=== PATIENT | female | born 1960 | race African-American/Black ===

== ENCOUNTER → 2017-03-05 | Emergency (ER) | payer MEDICAID | END | disposition left against medical advice (07) | LOC: ER 22:26 | DX: T21.02XA Burn of unspecified degree of abdominal wall, initial encounter (principal); Z53.21 Procedure and treatment not carried out due to patient leaving prior to being seen by health care provider; X58.XXXA Exposure to other specified factors, initial encounter; Y93.89 Activity, other specified; Y99.8 Other external cause status; Y92.89 Other specified places as the place of occurrence of the external cause ==

== ENCOUNTER 2019-12-08 00:15 | Emergency (ER) | payer MEDICAID ==
[~2019-12-08] VITALS: Ht 167.6 cm; Wt 86.2 kg
[2019-12-08 00:28] VITALS: BP 112/58
[2019-12-08] MEDS ORDERED: IPRATROPIUM BROM 0.5 MG/2.5ML INH SOL NEB ONE (02:00)
[2019-12-08] MEDS ORDERED: ALBUTEROL SULF 2.5 MG/0.5ML(0.5%) NEB SOLN NEB ONE (02:00)
== END 2019-12-08 03:04 | disposition home or self-care (01) ==
LOC: ER 00:16
DX: J45.909 Unspecified asthma, uncomplicated (principal); J20.9 Acute bronchitis, unspecified; H10.33 Unspecified acute conjunctivitis, bilateral; J01.00 Acute maxillary sinusitis, unspecified; I10 Essential (primary) hypertension; I25.2 Old myocardial infarction; F17.210 Nicotine dependence, cigarettes, uncomplicated; Z90.710 Acquired absence of both cervix and uterus
CPT/HCPCS: 71046; 94640; 99283; J7644

== ENCOUNTER 2021-05-04 08:34 | Inpatient (IN) | payer MEDICAID ==
[~2021-05-04] VITALS: Ht 167.6 cm; Wt 98.7 kg
[~2021-05-04 08:34] MED LIST: HYDR-4072 PO; LOSA25TA38 PO; RISP0.2535 PO; TRIA37.56 PO
[2021-05-04] MEDS ORDERED: MIDAZOLAM HCL 2MG/2ML 2ml VIAL (1mg/ml) ONE (09:07)
[2021-05-04] MEDS ORDERED: ROCURONIUM 10MG/ML 10ML VIAL IV ONE ×2 (09:07→12:50)
[2021-05-04] MEDS ORDERED: fentaNYL CITRATE 100 MCG/2 ML VL ONE (09:07)
[2021-05-04] MEDS ORDERED: SODIUM CHLORIDE LOCK 10 ML ONE (09:07)
[2021-05-04] MEDS ORDERED: GLYCOPYRROLATE 0.2 MG/ML 1ML VIAL ONE (09:07)
[2021-05-04] MEDS ORDERED: HYDROmorphone HCL 2 MG/ML VL ONE (09:07)
[2021-05-04] MEDS ORDERED: ONDANSETRON HCL 4 MG/2 ML VIAL ONE (09:07)
[2021-05-04] MEDS ORDERED: NEOSTIGMINE 1 MG/ML INJ (10mg/10ML VIAL) ONE (09:07)
[2021-05-04] MEDS ORDERED: PROPOFOL 10 MG/ML 20 ML IV ONE (09:07)
[2021-05-04] MEDS: LIDOCAINE W/ EPINEPHRINE 1% 20ML VIAL ONE ×2 (09:41→14:43)
[2021-05-04] MEDS: BUPIVACAINE 0.25% INJ 50ML VIAL ONE ×2 (09:42→14:43)
[2021-05-04] MEDS ORDERED: METHYLENE BLUE 0.5% 5MG/ML 10ml AMP IV ONE (09:42)
[2021-05-04] MEDS ORDERED: CIPROFLOXACIN 400MG/200ML 200 ML IV ONE (10:56)
[2021-05-04] MEDS ORDERED: ALPRAZolam 0.5 MG TAB PO PRN (11:30)
[2021-05-04] MEDS ORDERED: ACETAMINOPHEN 500 MG TAB PO PRN (11:30)
[2021-05-04] MEDS ORDERED: NITROGLYCERIN 0.4 MG SL TAB SL PRN (11:30)
[2021-05-04] MEDS ORDERED: HYDROcodone-ACET 10/325MG TAB PO PRN (11:30)
[2021-05-04] MEDS ORDERED: ONDANSETRON HCL 4 MG/2 ML VIAL IV PRN (11:30)
[2021-05-04] MEDS ORDERED: MORPHINE SULFATE INJECTION 2 MG/ML SYRG IV PRN (11:30)
[2021-05-04] MEDS ORDERED: SUCCINYLCHOLINE CHLORIDE 20 MG/ML 10ML VIAL IV ONE (13:40)
[2021-05-04] MEDS ORDERED: SUGAMMADEX 200mg/2ml Vial (100MG/ML) IV ONE (14:44)
[2021-05-04] MEDS: SODIUM CHLORIDE 0.9% 1,000 ML IV SCH (15:00)
[2021-05-04 17:00] VITALS: BP 134/73
[2021-05-04] MEDS: MORPHINE SULFATE 4 MG/ML SYR/VIAL IV PRN ×2 (17:33→21:17)
[2021-05-05] MEDS: SODIUM CHLORIDE 0.9% 1,000 ML IV SCH ×2 (02:36→03:30)
[2021-05-05 05:00] VITALS: BP 159/87
[2021-05-05 09:00] VITALS: BP 119/72
== END 2021-05-05 11:10 | disposition home or self-care (01) | DRG 514 ==
LOC: SUR 08:34 → OVERFLOW 11:21 → WEST WING 17:05
PROVIDERS: ADMIT Obstetrics & Gynecology; ATTEND Obstetrics & Gynecology
PROC: 0USG4ZZ Reposition Vagina, Percutaneous Endoscopic Approach (ICD-10-PCS; 2021-05-04)
PROC: 0DU Gastrointestinal System, Supplement (ICD-10-PCS; 2021-05-04)
PROC: 8E0W4CZ Robotic Assisted Procedure of Trunk Region, Percutaneous Endoscopic Approach (ICD-10-PCS; 2021-05-04)
PROC: 0DNW4ZZ Release Peritoneum, Percutaneous Endoscopic Approach (ICD-10-PCS; 2021-05-04)
PROC: 0DU Gastrointestinal System, Supplement (ICD-10-PCS; principal; 2021-05-04 11:49)
DX: N81.4 Uterovaginal prolapse, unspecified (principal); G40.909 Epilepsy, unspecified, not intractable, without status epilepticus; G89.29 Other chronic pain; Z20.822 Contact with and (suspected) exposure to COVID-19; N81.89 Other female genital prolapse; J45.909 Unspecified asthma, uncomplicated; N18.2 Chronic kidney disease, stage 2 (mild); N73.6 Female pelvic peritoneal adhesions (postinfective); I12.9 Hypertensive chronic kidney disease with stage 1 through stage 4 chronic kidney disease, or unspecified chronic kidney disease; Z98.51 Tubal ligation status; Z88.0 Allergy status to penicillin; Z88.2 Allergy status to sulfonamides; Z79.899 Other long term (current) drug therapy; I25.2 Old myocardial infarction
CPT/HCPCS: 86850; 86900; 86901; G0378; J0330; J2250; J2405; J2704; J3490